=== PATIENT | male | born 1975 | race Caucasian/White ===

== ENCOUNTER 2022-07-13 05:36 | Day surgery (SDC) | payer OTHER, SELFPAY ==
[2022-07-10 07:50] VITALS: BMI 34.7
[2022-07-13 06:05] VITALS: BP 155/102; PULSE 78; RESP 18; TEMP 36.2; O2SAT 100
[2022-07-13] MEDS: sodium chloride 0.9% 1,000 ML 30 ML IV (06:15)
--- NOTE | 2022-07-13 06:49 | ANES.PREANE2 ---
Pre-Anesthetic Assessment Height/Weight: Height 1.75 m Weight 106.594 kg Temp Pulse Resp BP Pulse Ox O2 Del Method 97.1 F L 78 18 155/102 100 07/13/22 06:05 07/13/22 06:05 07/13/22 06:05 07/13/22 06:05 07/13/22 06:05 07/13/22 06:05 Preop Diagnosis: screening Operation Date: 07/13/22 07:00 Proposed Procedures p Colonoscopy 10578,Z12.13(Not Applicable) - Kilo Conway MD Familial anesthetic complications: none Was Beta Zach taken within 24 hours: N/A Was Clonidine taken within 24 hours: N/A Last intake: Intake Last Liquid Date 07/12/22 Last Liquid Time 17:30 Last Solid Date 07/11/22 Social Tobacco 0.5 pack(s) per day 10 pack years Exam alert, oriented x 3 and clear to auscultation bilaterally Airway Submandibular: within normal limits Cervical ROM: within normal limits Mallampati: Class II History/ROS No significant history except as noted Pulmonary None reported CV/HEM Hypertension None reported Hepatic None reported GI Gastroesophageal Reflux Disease reflux related to diet Metabolic None reported Musc/skel None reported Neuropsych None reported Anesthetic Plan ASA status: 2 Anesthesia: MAC Risk of > 500 ml blood loss (7ml/kg in children): No Medications/Allergies Home Medications Medication Instructions Recorded Confirmed Last Taken Type atorvastatin 20 mg tablet 20 mg PO .1/2 daily 05/22/22 07/13/22 07/11/22 History ibuprofen 800 mg tablet 800 mg PO BID PRN Pain 05/22/22 07/13/22 07/10/22 History methocarbamol 750 mg tablet 750 mg PO TID PRN Pain 05/22/22 07/13/22 07/03/22 History omeprazole 40 mg capsule,delayed 40 mg PO DAILY 05/22/22 07/13/22 07/10/22 History release sildenafil 100 mg tablet 100 mg PO .every week PRN Sexual 05/22/22 07/13/22 07/10/22 History Activity peg 3350-electrolytes 236 240 ml PO Q10M #4,000 mL 07/09/22 07/13/22 07/12/22 Rx gram-22.74 gram-6.74 gram-5.86 gram solution (Golytely) Allergies Allergy/AdvReac Type Severity Reaction Status Date / Time No Known Allergies Allergy Unverified 07/13/22 06:03 Current Medications Generic Name Dose Route Start Last Admin Trade Name Freq PRN Reason Stop Dose Admin Sodium Chloride 1,000 mls @ 30 mls/hr 07/13/22 06:00 07/13/22 06:15 Sodium Chloride 0.9% IV 07/14/22 05:59 30 mls/hr .Q24H EARNEST Administration Data Anesthesia Cardiac Studies: No Data to Display
--- NOTE | 2022-07-13 07:10 | W.PM.OPSFHP ---
Same Day Surgery H&P Indication for Procedure/HPI DATE OF PROCEDURE: July 13, 2022 CHIEF COMPLAINT/INDICATIONFOR SURGICAL PROCEDURE: Screening PREOP DIAGNOSIS: screen PLANNED PROCEDURE: Operation Date: 07/13/22 07:00 Proposed Procedures p Colonoscopy 48054,Z12.13(Not Applicable) - Kilo Conway MD Medications/Allergies* Home Medications Medication Instructions Recorded Confirmed Type atorvastatin 20 mg tablet 20 mg PO .1/2 daily 05/22/22 07/13/22 History ibuprofen 800 mg tablet 800 mg PO BID PRN Pain 05/22/22 07/13/22 History methocarbamol 750 mg tablet 750 mg PO TID PRN Pain 05/22/22 07/13/22 History omeprazole 40 mg capsule,delayed 40 mg PO DAILY 05/22/22 07/13/22 History release sildenafil 100 mg tablet 100 mg PO .every week PRN Sexual 05/22/22 07/13/22 History Activity Allergies/Adverse Reactions Allergy/AdvReac Type Severity Reaction Status Date / Time No Known Allergies Allergy Unverified 07/13/22 06:03 Current Medications: Generic Name Dose Route Start Last Admin Trade Name Freq PRN Reason Stop Dose Admin Sodium Chloride 1,000 mls @ 30 mls/hr 07/13/22 06:00 07/13/22 06:15 Sodium Chloride 0.9% IV 07/14/22 05:59 30 mls/hr .Q24H EARNEST Administration Pertinent Exam Findings alert, oriented x 3, clear to auscultation bilaterally, regular rate & rhythm, operative site marked and procedure specific exam findings Recommendations Surgery/Procedure today Coding Level of Care Code Acute [employer] Liaison Officer for Vladimir Calderon
[2022-07-13 07:25] VITALS: BP 101/72; PULSE 77; RESP 16; TEMP 36.1; O2SAT 95
[2022-07-13 07:43] VITALS: BP 122/66; PULSE 70; RESP 18; O2SAT 98
--- NOTE | 2022-07-13 13:02 | ANE.PACU2 ---
Inpatient post-anesthesia follow up: Airway intact: Yes Vital signs: Temperature 97 F Pulse Rate 70 Respiratory Rate 18 Blood Pressure 122/66 Pulse Oximetry 98 Oxygen Delivery Me thod Room Air Oxygen Flow Rate 2 Fraction of Inspir ed Oxygen Hydration adequate: Yes Nausea and vomiting: No Pain level: 1 Mental status: Baseline
== END 2022-07-13 07:58 | disposition home or self-care (01) ==
PROVIDERS: PCP Family Medicine; Visit Provider Internal Medicine
PROC: 0DJD8ZZ Inspection of Lower Intestinal Tract, Via Natural or Artificial Opening Endoscopic (ICD-10-PCS; CPT 45378; principal; 2022-07-13 07:00)
DX: Z12.11 Encounter for screening for malignant neoplasm of colon (principal); F17.200 Nicotine dependence, unspecified, uncomplicated; I10 Essential (primary) hypertension; K21.9 Gastro-esophageal reflux disease without esophagitis
CPT/HCPCS: 45378; J2704; J7030

== ENCOUNTER → 2023-10-13 15:20 | Outpatient (BNVA) | payer OTHER, SELFPAY | PROVIDERS: PCP Family Medicine; Visit Provider Nurse Practitioner Family | DX: D23.72 Other benign neoplasm of skin of left lower limb, including hip (principal); L57.8 Other skin changes due to chronic exposure to nonionizing radiation; L91.8 Other hypertrophic disorders of the skin; D22.4 Melanocytic nevi of scalp and neck; L81.4 Other melanin hyperpigmentation | CPT/HCPCS: 11200; 99213 ==

== ENCOUNTER → 2023-10-28 08:45 | Outpatient (BNVA) | payer OTHER, SELFPAY | PROVIDERS: PCP Family Medicine; Visit Provider Dermatology | DX: D48.5 Neoplasm of uncertain behavior of skin (principal) | CPT/HCPCS: 11402; 12032 ==

== ENCOUNTER → 2023-11-11 15:26 | Outpatient (BNVA) | payer OTHER, SELFPAY | PROVIDERS: PCP Family Medicine; Visit Provider Dermatology | DX: Z48.02 Encounter for removal of sutures (principal) | CPT/HCPCS: 99212 ==

== ENCOUNTER → 2025-11-19 15:44 | Outpatient (BNVA) | payer OTHER, SELFPAY | PROVIDERS: PCP Family Medicine; Visit Provider Nurse Practitioner Family | DX: L30.0 Nummular dermatitis (principal); L90.5 Scar conditions and fibrosis of skin; D22.5 Melanocytic nevi of trunk | CPT/HCPCS: 99213 ==